=== PATIENT | female | born 1965 | race Caucasian/White ===

== ENCOUNTER 2025-02-26 21:46 | Emergency (ER) | payer MEDICAID, SELFPAY ==
[2025-02-26 21:52] VITALS: BP 178/98; PULSE 85; RESP 18; TEMP 36.8; O2SAT 97; BMI 40.8
--- OUTSIDE RECORDS SUMMARY | 2025-02-26 21:57 | XMS_ITS | Encounter Summary ---
Author Organization [facility] Address [address] [place] [address] Care Team Providers Care Watch And Clock Maker And Repairer Name Role Phone Javad Caruso MD Primary Care Provider [phone] Reason for Referral * Consultation (Routine) - Closed Specialty Diagnoses / Procedures Referred By Contac t Referred To Contact Pain Medicine Diagnoses Lumbar disc disease Javad Caruso MD [address] [place] [address] Phone: tel: fax: [facility] Interventional Pain Medicine [address] [place] [address] Phone: tel: fax: Referral ID Status Reason Start Date Expiration Date V isits Requested Visits Authorized [id number] Closed Specialty Services Required 04/25/2022 10/25/2023 1 1 Encounter Details Date Type Department Care Team (Late st Contact Info) Description 04/25/2022 Community [facility] [address] [place] [address] Javad Caruso MD [address] [place] [address] Lumbar disc disease (Primary Dx); Chronic pain of left knee Social History Tobacco Use Types Packs/Day Years Used Date Smoking Tobacco: Every Day Alcohol Use Standard Drinks/Week Comments Yes 0 (1 standard drink = 0.6 oz pure alcohol) Alcoholic Drinks/day: Social alcohol use Comments Unknown Sex and Gender Information Value Date Recorded Sex Assigned at Not on file Legal Sex Female 8:44 PM EDT Gender Identity Not on file Sexual Orientation Not on file documented as of this encounter Plan of Treatment Scheduled Referrals Name Type Priority Associated Diagnoses Order Schedule Ambulatory referral to Pain Medicine Outpatient Referral Routine Lumbar disc disease Expected: 04/25/2022 (Approximate), Expires: 10/24/2023 documented as of this encounter Visit Diagnoses Diagnosis Lumbar disc disease- Primary Other and unspecified disc disorder of lumbar region Chronic pain of left knee documented in this encounter Care Teams Watch And Clock Maker And Repairer Relationship Specialty Start Date End Date Javad Caruso MD [address] [place] [address] PCP - General 01/01/21 documented as of this encounter
--- OUTSIDE RECORDS SUMMARY | 2025-02-26 21:57 | XMS_ITS | Encounter Summary ---
Author Organization Healthcare Address [address] [place] [address] Care Team Providers Care Ribbing Machine Operator Name Role Phone Javad Caruso MD Primary Care Provider [phone] Encounter Details Date Type Department Care Team ([facility] Contact Info) Description 07/14/2023 Orders Only External Location [address] [place] [address] Provider, External Social History Tobacco Use Types Packs/Day Years Used Date Smoking Tobacco: Every Day Cigarettes Smokeless Tobacco: Never Alcohol Use Standard Drinks/Week Comments Yes 0 (1 standard drink = 0.6 oz pure alcohol) Alcoholic Drinks/day: Social alcohol use Comments No Sex and Gender Information Value Date Recorded Sex Assigned at Not on file Legal Sex Female 8:44 PM EDT Gender Identity Not on file Sexual Orientation Not on file documented as of this encounter Plan of Treatment Not on file documented as of this encounter Procedures Procedure Name Priority Date/Time Associated Diagnosis Comments XR OUTSIDE IMAGES 07/14/2023 7:54 AM EST documented in this encounter Results * XR OUTSIDE IMAGES (07/14/2023 7:54 AM EST) Anatomical Region Laterality Modality Radiographic Beverly ging 07/14/2023 7:54 AM EST us External Provider IMG XR PROCEDURES Final Result documented in this encounter Visit Diagnoses Not on filedocumented in this encounter Additional Health Concerns Assessment Noted Time A fall risk assessment has been complete d for the patient 05/10/2022 8:04 AM EDT documented as of this encounter Care Teams Ribbing Machine Operator Relationship Specialty Start Date End Date Javad Caruso MD [address] [place] [address] PCP - General 01/01/21 documented as of this encounter
--- OUTSIDE RECORDS SUMMARY | 2025-02-26 21:57 | XMS_ITS | Encounter Summary ---
Author Organization Healthcare Address [address] [place] [address] Care Team Providers Care Operations Officer Name Role Phone Javad Caruso MD Primary Care Provider Encounter Details Date Type Department Care Team ([facility] Contact Info) Description 07/14/2023 Orders Only External Location [address] [place] [address] Provider, External Social History Tobacco Use Types [...] Procedure Name Priority Date/Time Associated Diagnosis Comments CT NEURO OUTSIDE IMAGES 07/14/2023 7:34 AM EST documented in this encounter Results * CT NEURO OUTSIDE IMAGES (07/14/2023 7:34 AM EST) Anatomical Region Laterality Modality Computed Tomogra phy 07/14/2023 7:34 AM EST us External Provider IMG CT PROCEDURES Final Result documented in this encounter Visit Diagnoses Not on filedocumented in this encounter Additional Health Concerns Assessment Noted Time A fall risk assessment has been complete d for the patient 05/10/2022 8:04 AM EDT documented as of this encounter Care Teams Operations Officer Relationship Specialty Start Date End Date Javad Caruso MD [address] [place] [address] PCP - General 01/01/21 documented as of this encounter
--- OUTSIDE RECORDS SUMMARY | 2025-02-26 21:57 | XMS_ITS | Encounter Summary ---
Author Organization Healthcare Address [address] [place] [address] Care Team Providers Care Staff Training And Development Manager Name Role Phone Javad Caruso MD Primary Care Provider [phone] Encounter Details Date Type Department Care Team ([facility] Contact Info) Description 07/03/2024 Orders Only External Location [address] [place] [address] Provider, External Social History Tobacco Use Types [...] Associated Diagnosis Comments CT NEURO OUTSIDE IMAGES 07/03/2024 9:06 PM EST documented in this encounter Results * CT NEURO OUTSIDE IMAGES (07/03/2024 9:06 PM EST) Anatomical Region Laterality Modality Computed Tomogra phy 07/03/2024 9:06 PM EST us External Provider IMG CT PROCEDURES Final Result documented in this encounter Visit Diagnoses Not on filedocumented in this encounter Additional Health Concerns Assessment Noted Time A fall risk assessment has been complete d for the patient 05/10/2022 8:04 AM EDT documented as of this encounter Care Teams Staff Training And Development Manager Relationship Specialty Start Date End Date Javad Caruso MD [address] [place] [address] PCP - General 01/01/21 documented as of this encounter
--- OUTSIDE RECORDS SUMMARY | 2025-02-26 21:57 | XMS_ITS | Clinical Summary ---
Author Organization [facility] Address [address] [place] [address] Care Team Providers Care Sales Account Coordinator Name Role Phone Javad Caruso MD Primary Care Provider [phone] Allergies Active Allergy Reactions Criticality Noted Date Comments Cyclobenzaprine Other - please docum ent in the comment field Low 06/06/2016 Horse-Derived Products Hives Medium 11/30/2015 Lisinopril Cough Low 10/18/2017 Tramadol Itching,Rash Medium 11/30/2015 Medications atorvastatin (Lipitor) 20 MG tablet 07/10/2018 Active carvedilol (Coreg) 6.25 MG tablet Take 1 tablet by mouth every 12 (twelve) hours. 07/17/2018 Active diazePAM (Valium) 5 MG tablet Take 5 mg by mouth. 06/20/2018 Active famotidine (Pepcid) 20 MG tablet Take 1 tablet by mouth 2 (two) times a day. 04/05/2022 Active ipratropium-alb uterol (Duo-Neb) 0.5-2.5 mg/3 mL nebulizer solution Inhale 3 mL 4 times a day. 12/31/2021 Active pantoprazole (Protonix) 40 MG EC tablet Take 40 mg by mouth 1 (one) time each day. 04/05/2022 Active promethazine (Phenergan) 12.5 MG tablet Take 12.5 mg by mouth. 12/25/2017 Active tiZANidine (Zanaflex) 4 MG tablet Take 4 mg by mouth 3 times a day. 10/26/2021 Active Ventolin HFA 108 (90 Base) MCG/ACT inhaler take 2 puffs by mouth every 4 hours as needed for wheeze 09/28/2024 Active cholecalciferol (Vitamin D3) 25 MCG (1000 UT) tablet Take 3 tablets (3,000 Units) by mouth 1 (one) time each day. 07/24/2024 Active gabapentin (Neurontin) 300 MG capsule Take 1 capsule (300 mg) by mouth every 12 (twelve) hours. 10/10/2024 Active HYDROcodone-richie taminophen (Dodge) 5-325 MG tablet Take 1 tablet (5 mg of hydrocodone) by mouth every 12 (twelve) hours. 09/10/2024 Active lidocaine (Lidoderm) 5 % patch 07/04/2024 Active nicotine (Nicoderm CQ) 21 MG/24HR patch 1 patch. DIRECTED BY PROVIDER 10/10/2024 Active Family History Medical History Relation Name Comments Rectal cancer Mother Arthritis Other 1 Hypertension Other 2 Rectal cancer Sister Relation Name Status Comments Mother Other 1 Other 2 Sister Social History Tobacco Use Types Packs/Day Years Used Date Smoking Tobacco: Every Day Cigarettes Smokeless Tobacco: Never Tobacco Cessation:Ready to Q uit: Not Asked; Counseling Given: Not Answered Alcohol Use Standard Drinks/Week Comments Yes 0 (1 standard drink = 0.6 oz pure alcohol) Alcoholic Drinks/day: Social alcohol use Comments No Sex and Gender Information Value Date Recorded Sex Assigned at Not on file Legal Sex Female 8:44 PM EDT Gender Identity Not on file Sexual Orientation Not on file Last Filed Vital Signs Vital Sign Reading Time Taken Comments Blood Pressure 146/81 11/07/2024 9:01 AM EDT Pulse 73 11/07/2024 9:01 AM EDT Temperature 36.7 C (98 F) 05/10/2022 8:04 AM EDT Respiratory Rate 16 05/10/2022 8:04 AM EDT Oxygen Saturation 95% 11/07/2024 9:01 AM EDT Inhaled Oxygen Concentration - - Weight 92 kg (202 lb 13.2 oz) 11/07/2024 9:01 AM EDT Height 149.9 cm (4' 11 ) 11/07/2024 9:01 AM EDT Body Mass Index 40.97 11/07/2024 9:01 AM EDT Plan of Treatment Health Maintenance Due Date Last Done Comments [facility]-Depression Screening 1965 [facility]-HIV Screening 1965 [facility]-Hepatitis C Screening 1965 [facility]-/Child/Adol SDOH Screenings 1965 [facility]- SDOH Screenings 1985 [facility]-Adult SDOH Screenings 1985 [facility]-DTaP,Tdap,and Td Vaccines (1 - Tdap) 1986 [facility]-Hepatitis B Vaccines (1 of 3 - 19+ 3-dose series) 1986 [facility]-Pneumococcal Vaccine: 50+ Years (1 of 2 - PCV) 1986 [facility]-Pap Smear 06/19/2003 06/19/2000, 10/19, 08/26/1997, Additional history exists [facility]-Cervical Cancer Screening 06/19/2005 [facility]-HPV/Cotest 06/19/2005 06/19/2000, 10/19, 08/26/1997, Additional history exists CT Colonography 01/25/2012 FIT-DNA 01/25/2012 FIT 01/25/2012 FOBT 01/25/2012 Sigmoidoscopy 01/25/2012 [facility]-Zoster Vaccines (1 of 2) 2017 Colonoscopy 11/14/2022 11/14/2012 [facility]-Colorectal Cancer Screening 11/14/2022 [facility]-FTFRC-72 Vaccine (2 - season) 2024 09/10/2021 [facility]-Breast Cancer Screening 03/02/202502/18, 10/14/2020, 03/27/2019, Additional history exists [facility]-Influenza Vaccine (#1) 04/21/202507/23, 07/04/2023, 05/29/2020, Additional history exists [facility]-Diabetes: Hemoglobin A1C 07/23/202510/2023, 10/12/2023, 01/05/2020, Additional history exists [facility]-Obesity Intervention Completed 11/07/2024, 04/22 HPV Vaccines Aged Out No longer eligi ble based on patient's age to complete this topic [facility]-HIB Vaccines Aged Out No longer e ligible based on patient's age to complete this topic [facility]-Hepatitis A Vaccines Aged Out No longer eligible based on patient's age to complete this topic [facility]-IPV Vaccines Aged Out No longer e ligible based on patient's age to complete this topic [facility]-Rotavirus Vaccines Aged Out No lo nger eligible based on patient's age to complete this topic Procedures Procedure Name Priority Date/Time Associated Diagnosis Comments MAMMOGRAPHY BREAST SCREENING TOMOSYNTHESIS BILATERAL Routine 03/02/2023 7:11 AM EDT Visit for screening mammogram COLONOSCOPY 11/14/2012 CYTO DATA CONVERSION Routine 06/19/2000 12:00 AM EST from Last 3 Months or Most Recently Relevant to Health Maintenance Results * Mammography Breast Screening Tomosynthesis Bilateral (03/02/2023 7:11 AM EDT) Anatomical Region Laterality Modality Breast Bilateral Mammography Impressions 03/03/2023 3:39 PM EDT No mammographic evidence of malignancy. BI-RADS CATEGORY: Overall: 1 - Negative RECOMMENDATION: - Routine Screening Mammogram in 1 Year. Patient Lifetime Risk Score of Breast Malignancy: 5.3 % This risk assessment is calculated using the Calli Risk Assessment model which may underestimate the lifetime risk of breast malignancy. COMMUNICATION: Computer-aided detection (CAD) and tomosynthesis were utilized by the radiologist in the interpretation of this examination. The results and recommendations will be sent to the patient in a printed lay language version of the imaging report. Narrative 03/03/2023 3:39 PM EDT EXAM: Mammography Breast Screening with Tomosynthesis REASON FOR EXAM: Screening Mammogram HISTORY: Patient is 58 y.o. COMPARISON STUDIES: Compared to: 05/16/2014 Mammography Breast Screening Tomosynthesis Bilateral 02/09/2016 Mammography Breast Screening Tomosynthesis Bilateral at [facility] 03/08/2017 Mammography Breast Screening Tomosynthesis Bilateral at [facility] 03/27/2019 Mammography Breast Screening Tomosynthesis Bilateral at [facility] 10/14/2020 Mammography Breast Screening Tomosynthesis Bilateral at [facility] BREAST COMPOSITION: The breasts are almost entirely fatty. FINDINGS: There are no suspicious masses, calcifications, or areas of architectural distortion. us Javad Caruso MD IMG BI PROCEDURES Final Result * COLONOSCOPY (11/14/2012) Anatomical Region Laterality Modality Endoscopy Narrative 11/14/2012 Ordered by an unspecified provider. us Historical Provider GI PROCEDURE ORDERABLES F inal Result * Cytology (06/19/2000 12:00 AM EST) 06/19/2000 06/20/2000 10: 39 AM EST Narrative SUNQUEST - 06/24/2000 12:52 PM EST [facility] MR #: [id number] [facility] [address], [place] [address] 1965 (Age: 35) FW Collect Date: 06/19/2000 00:00 Receipt Date: 06/20/2000 10:39 Page 1 DEPARTMENT OF PATHOLOGY AND LABORATORY MEDICINE CYTOPATHOLOGY REPORT Email: [email or web address] MD/Practitioner: Vikash Hurst MD Service: BULLET CASTING OPERATOR Location: OB OTHER MD(S): Cara Bergman M.D. Reported: 06/24/2000 12:52 Collected: 06/19/2000 00:00 INTERPRETATION THIN PREP (CERVICAL/VAGINAL): WITHIN NORMAL LIMITS. SATISFACTORY FOR INTERPRETATION. Electronically Signed Out By LAURIE Becker (ASCP) LAURIE Branch (ASCP) LAURIE Becker (ASCP) Cervical cytology is a screening test primarily for squamous cancers and precursors and has associated false negative and positive results. New technologies such as liquid based sampling may decrease but will not eliminate all false negative results. Regular screening and follow-up of unexplained clinical signs and symptoms are recommended to minimize false negative results. Please see the ASCCP website (www.asccp.org) for followup recommendations. If HPV testing was requested, correlation with the results is suggested (please call Microbiology at [phone] for results). CLINICAL INFORMATION: Menstrual History: {Not Provided} Date of Last Menstrual Period: BEGINNING OF MAY SPECIMEN DESCRIPTION: A: THIN PREP (CERVICAL/VAGINAL) THIN PREP PROCESS CELLULAR ENHANCEMENT ICD: V76.2 CERVIX, SPECIAL SCREENING FOR MALIGNANT NEOPLASM F: A; THIN SCRN [id number] SNOMED CODES: A; [id number] In cases where a pathologist has signed out the report, the service has been rendered in part by a resident. The signing pathologist has performed and is responsible for the reported pathologic evaluation. us Historical Provider MD LAB PATHOLOGY ORDERABLES Final Result [facility] from Last 3 Months or Most Recently Relevant to Health Maintenance Insurance [facility] [employer] [facility] MEDICAID Care Teams Sales Account Coordinator Relationship Specialty Start Date End Date Javad Caruso MD [address] [place] [address] PCP - General 01/01/21
--- OUTSIDE RECORDS SUMMARY | 2025-02-26 21:57 | XMS_ITS | Encounter Summary ---
Author Organization Healthcare Address [address] [place] [address] Care Team Providers Care Home Visitor Name Role Phone Javad Caruso MD Primary Care Provider [phone] Encounter Details Date Type Department Care Team ([facility] Contact Info) Description 07/03/2024 Orders Only External Location [address] [place] [address] Provider, External Social History Tobacco Use Types [...] Diagnosis Comments CT NEURO OUTSIDE IMAGES 07/03/2024 9:04 PM EST documented in this encounter Results * CT NEURO OUTSIDE IMAGES (07/03/2024 9:04 PM EST) Anatomical Region Laterality Modality Computed Tomogra phy 07/03/2024 9:04 PM EST us External Provider IMG CT PROCEDURES Final Result documented in this encounter Visit Diagnoses Not on filedocumented in this encounter Additional Health Concerns Assessment Noted Time A fall risk assessment has been complete d for the patient 05/10/2022 8:04 AM EDT documented as of this encounter Care Teams Home Visitor Relationship Specialty Start Date End Date Javad Caruso MD [address] [place] [address] PCP - General 01/01/21 documented as of this encounter
--- OUTSIDE RECORDS SUMMARY | 2025-02-26 21:58 | XMS_ITS | Patient Health Record ---
Author Organization [facility] Address [address] [place] [address] Care Team Providers Care Knife Setter Assembler Name Role Phone Burton Dean II Unavailable [phone] Josiah [facility], Julio César Unavailable Unavai lable Allergies Allergen (clinical drug ingredient) Drug/Non Drug Allergy documented on EMR Reaction Allergy Type Onset Date Status Toradol hives Drug Allergy Active Flexeril dizziness Drug Allergy Active Darvocet N 50 hives Drug Allergy Act eryn lisinopril rash Drug Allergy Active tramadol tramadol rash Drug Allergy Active Reason For Referral No Information Medications Medication SIG (Take, Route, Frequency, Duration) Notes Start Date End Date Status pantoprazole 40 mg 1 tab(s) orally once a day; Duration: 30 day(s) 11/22/2021 Active famotidine 20 mg 1 tab(s) orally 2 times a day 11/22/2021 Active polyethylene glycol 3350 - as directed orally once a day; Duration: 7 day(s) 01/12/2022 Active ipratropium CFC free 17 mcg/inh 2 puff(s) by metered dose inhaler 4 times a day; Duration: 30 day(s) 01/12/2022 Active diazePAM 5 mg 1 tab(s) orally once a day PRN Active gabapentin 600 mg 1 tab(s) orally 3 times a day; Duration: 30 day(s) DO NOT FILL ANY SOONER THAN EVERY 30 DAYS, (OK TO FILL EARLY IF CLOSED) Active tizanidine 4 mg 1 tabs orally three times a day; Duration: 30 day(s) Active esomeprazole 40 mg 1 cap(s) orally once a day; Duration: 30 day(s) 11/22/2021 Active Acetaminophen-Oxycodone Hydrochloride 325 mg-10 mg 1 tab(s) orally every 8 hours; Duration: 30 day(s) JANUARY 2022 RX, DO NOT FILL ANY SOONER THAN EVERY 30 DAYS, (OK TO FILL EARLY IF CLOSED) Active carvedilol 6.25 mg 1 tab(s) orally 2 times a day; Duration: 30 day(s) 11/27/2020 Active promethazine 12.5 mg 1 tab(s) orally every 6 hours as needed for nausea 12/14/2020 Active Acetaminophen-Oxycodone Hydrochloride 325 mg-10 mg 1 tab(s) orally every 8 hours; Duration: 30 day(s) FEBRUARY 2022 RX, DO NOT FILL ANY SOONER THAN EVERY 30 DAYS, (OK TO FILL EARLY IF CLOSED) Active atorvastatin 40 mg 1 tab(s) orally once a day; Duration: 30 day(s) 11/27/2020 Active Problems Problem Type SNOMED Code ICD Code Onset Dates Problem Status W/U Status Risk Notes Problem Lumbosacral spondylosis without myelopathy (66677364) Spondylosis without myelopathy or radiculopathy, lumbar region (M47.816) Active confirmed Problem Degeneration of cervical intervertebral disc (33641350) Other cervical disc degeneration, unspecified cervical region (M50.30) Active confirmed Problem Lumbar radiculopathy (510696581) Radiculopathy, lumbar region (M54.16) Active confirmed Problem Spasm (32296126) Other muscle spasm (M62.838) Active confirmed Problem Long-term current use of drug therapy (002558428) Other custodial (current) drug therapy (Z79.899) Active confirmed Problem Drug-induced constipation (98790198) Drug induced constipation (K59.03) Active confirmed Problem Cervical radiculopathy (29978297) cervical radiculopathy (M54.12) Active confirmed Encounters Encounter Location Date Provider Diagnosis [facility] [address] [place] [address] 01/16/2025 Burton Dean Plan Of Treatment No Information Insurance Providers Payer Name Payer Address Payer Phone Subscriber Number Group Number Insured Name Patient Relationship to Insured Coverage Start Date Coverage End Date [employer] [address] [address] [place] [address] [id number] Jeanne Mary Self - patient is the insured 2 Medical (General) History Medical History History ICD Code anxiety 2005 / managed by: Dr. Caruso Depression 2005 / managed by: Dr. Caruso arthritis OA/RA 2006 / managed by: Dr. Kyle henley reflux [phone] / managed by: Dr. Caruso hiatal hernia 2001 / managed by: Dr. Bridget prasad sleep apnea 2016 / managed by: Dr. Caruso asthma 1966 / managed by: Dr. Caruso hyperlipidemia 2018 / managed by: Dr. Aguero ith HTN 1995 / managed by: Dr. Caruso stroke 2019 / managed by: Dr. Caruso gallbladder 1990s @ [facility] Dr. Caruso Surgical History Surgery Date(Month/Year) ovarian cyst X3/ [facility] / (OPx2) & 4 day stay 2015 gallbladder/ [facility]/ 1 w [place] stay 1989 Hospitalization History Reason Date(Month/Year) [facility] for TIA - 3 day stay 06/21-07/09/2018 Stroke - [facility] - 1 week stay ( self discharged) 01/2020
--- OUTSIDE RECORDS SUMMARY | 2025-02-26 21:58 | XMS_ITS | Encounter Summary ---
Author Organization Healthcare Address [address] [place] [address] Care Team Providers Care Hop Picker Name Role Phone Javad Caruso MD Primary Care Provider [phone] Encounter Details Date Type Department Care Team ([facility] Contact Info) Description 07/14/2023 Orders Only External Location [address] [place] [address] Provider, External Social History Tobacco Use Types [...] Name Priority Date/Time Associated Diagnosis Comments CT OUTSIDE IMAGES 07/14/2023 7:36 AM EST documented in this encounter Results * CT OUTSIDE IMAGES (07/14/2023 7:36 AM EST) Anatomical Region Laterality Modality Computed Tomogra phy 07/14/2023 7:36 AM EST us External Provider IMG CT PROCEDURES Final Result documented in this encounter Visit Diagnoses Not on filedocumented in this encounter Additional Health Concerns Assessment Noted Time A fall risk assessment has been complete d for the patient 05/10/2022 8:04 AM EDT documented as of this encounter Care Teams Hop Picker Relationship Specialty Start Date End Date Javad Caruso MD [address] [place] [address] PCP - General 01/01/21 documented as of this encounter
--- OUTSIDE RECORDS SUMMARY | 2025-02-26 21:58 | XMS_ITS | Encounter Summary ---
Author Organization Healthcare Address [address] [place] [address] Care Team Providers Care Bunch Breaker Machine Operator Name Role Phone Javad Caruso MD Primary Care Provider [phone] Encounter Details Date Type Department Care Team ([facility] Contact Info) Description 08/20/2024 Orders Only External Location [address] [place] [address] Provider, External Social History Tobacco Use Types [...] Procedure Name Priority Date/Time Associated Diagnosis Comments MR NEURO OUTSIDE IMAGES 08/20/2024 9:10 AM EST documented in this encounter Results * MR NEURO OUTSIDE IMAGES (08/20/2024 9:10 AM EST) Anatomical Region Laterality Modality Magnetic Resonan ce 08/20/2024 9:10 AM EST us External Provider IMG MRI PROCEDURES Final Resul t documented in this encounter Visit Diagnoses Not on filedocumented in this encounter Additional Health Concerns Assessment Noted Time A fall risk assessment has been complete d for the patient 05/10/2022 8:04 AM EDT documented as of this encounter Care Teams Bunch Breaker Machine Operator Relationship Specialty Start Date End Date Javad Caruso MD [address] [place] [address] PCP - General 01/01/21 documented as of this encounter
--- OUTSIDE RECORDS SUMMARY | 2025-02-26 21:58 | XMS_ITS | Encounter Summary ---
Author Organization Healthcare Address [address] [place] [address] Care Team Providers Care Travel Pt Name Role Phone Javad Caruso MD Primary Care Provider [phone] Encounter Details Date Type Department Care Team ([facility] Contact Info) Description 08/20/2024 Orders Only External Location [address] [place] [id number] Provider, External Social History Tobacco Use Types [...] Diagnosis Comments MR NEURO OUTSIDE IMAGES 08/20/2024 9:32 AM EST documented in this encounter Results * MR NEURO OUTSIDE IMAGES (08/20/2024 9:32 AM EST) Anatomical Region Laterality Modality Magnetic Resonan ce 08/20/2024 9:32 AM EST us External Provider IMG MRI PROCEDURES Final Resul t documented in this encounter Visit Diagnoses Not on filedocumented in this encounter Additional Health Concerns Assessment Noted Time A fall risk assessment has been complete d for the patient 05/10/2022 8:04 AM EDT documented as of this encounter Care Teams Travel Pt Relationship Specialty Start Date End Date Javad aCruso MD [address] [place] [address] PCP - General 01/01/21 documented as of this encounter
[2025-02-26 22:00] VITALS: BP 156/77; PULSE 78; O2SAT 97
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
[2025-02-26] MEDS: AMOXICILLIN/CLAVULANATE POTASSIUM 875/125MG TABLET 1 EACH PO (22:08)
[2025-02-26] MEDS: OXYCODONE 5MG IMMEDIATE RELEASE TABLET 5 MG PO (22:26)
--- NOTE | 2025-02-26 22:29 | PC.NURSE ---
meds pulled nikki up by dr. Christian and then patient refused to do nerve block right before administration. meds discarded by dr. Christian
[2025-02-26 22:33] VITALS: BP 178/88; PULSE 80; RESP 18; TEMP 36.8; O2SAT 98
== END 2025-02-26 22:38 | disposition home or self-care (01) ==
PROVIDERS: Emergency Provider Student in an Organized Health Care Education/Training Program; PCP Internal Medicine
DX: K08.89 Other specified disorders of teeth and supporting structures (principal)
CPT/HCPCS: 99283